=== PATIENT | female | born 1960 | race Caucasian/White ===

== ENCOUNTER 2017-07-04 07:38 | Day surgery (SDC) | payer OTHER ==
[~2017-07-04] VITALS: Ht 162.6 cm; Wt 107.9 kg
[~2017-07-04 07:38] MED LIST: BUPIVACAINE/PF 0.5% ONE; CITA40TA5 PO; EPINEPHRINE 1 MG/ML, 1ML ONE; LEVO100T5 PO; LIDOCAINE/PF 1%-EPI 1:200K, 30 ML ONE; LORA1TAB PO; TRAZ50TA18 PO
[2017-07-04] MEDS ORDERED: LIDOCAINE 1%, 2ML ONE (07:55)
[2017-07-04 07:56] VITALS: BP 126/75
[2017-07-04] MEDS ORDERED: LIDOCAINE 1%, 2ML SQ PRN (08:00)
[2017-07-04] MEDS ORDERED: LACTATED RINGERS 1,000 ML IV SCH (08:00)
[2017-07-04] MEDS ORDERED: DEXAMETHASONE 4 MG/ML, 1ML ONE (08:28)
[2017-07-04] MEDS ORDERED: CEFAZOLIN 1,000 MG ONE (08:28)
[2017-07-04] MEDS ORDERED: PROPOFOL 10 MG/ML, 20ML ONE (08:28)
[2017-07-04] MEDS ORDERED: ONDANSETRON 2MG/ML, 2ML ONE (08:28)
[2017-07-04] MEDS ORDERED: FENTANYL PF 100 MCG/2ML ONE ×3 (08:38→09:40)
[2017-07-04] MEDS ORDERED: MIDAZOLAM 1 MG/ML, 2ML ONE ×2 (08:38→09:39)
[2017-07-04] MEDS ORDERED: HYDROcodone/APAP 7.5-325MG/15ML UDC ONE (09:06)
[2017-07-04] MEDS: FENTANYL PF 100 MCG/2ML IV PRN ×4 (09:13→09:42)
[2017-07-04] MEDS ORDERED: MEPERIDINE/PF 50 MG/ML ONE (09:16)
[2017-07-04] MEDS ORDERED: HYDROcodone/APAP 7.5-325MG/15ML UDC PO PRN (09:30)
[2017-07-04] MEDS ORDERED: MEPERIDINE/PF 25MG/0.5ML IVPush PRN (09:30)
[2017-07-04] MEDS: MIDAZOLAM 1 MG/ML, 2ML IV PRN ×2 (09:45→09:51)
== END 2017-07-04 12:45 | disposition home or self-care (01) ==
LOC: OUT 07:38
PROVIDERS: ATTEND Orthopaedic Surgery
DX: G56.01 Carpal tunnel syndrome, right upper limb (principal); E03.9 Hypothyroidism, unspecified; E66.9 Obesity, unspecified; Z88.8 Allergy status to other drugs, medicaments and biological substances
CPT/HCPCS: 29848; J0171; J0690; J1100; J2175; J2250; J2405; J2704; J3010; J3490; J7120

== ENCOUNTER → 2018-04-25 | Outpatient (CLI) | payer OTHER ==
[~2018-04-25] MED LIST changes: -BUPIVACAINE/PF 0.5% ONE; -EPINEPHRINE 1 MG/ML, 1ML ONE; +GADOBUTROL 10 MMOL/10 ML VIAL ONE; -LIDOCAINE/PF 1%-EPI 1:200K, 30 ML ONE; +TRAZ-136 PO; -TRAZ50TA18 PO
[2018-04-25 12:52] LABS: CREATININE 0.93 mg/dL (0.55-1.02)
== END | disposition home or self-care (01) ==
LOC: RAD 12:07
PROVIDERS: ATTEND Physician Assistant
DX: K76.3 Infarction of liver (principal); R16.0 Hepatomegaly, not elsewhere classified
CPT/HCPCS: 36415; 74183; 82565; A9585